=== PATIENT | female | born 1990 | race Caucasian/White ===

== ENCOUNTER 2017-10-28 09:42 | Emergency (ER) | payer OTHER ==
[~2017-10-28] VITALS: Ht 167.6 cm; Wt 68.0 kg
[2017-10-28 09:56] VITALS: BP 113/71
[2017-10-28] MEDS ORDERED: IBUPROFEN 600 MG TABLET PO ONE ×2 (10:17→10:30)
--- NOTE | 2017-10-28 10:30 | NUR ---
THROAT CULTURE AND RAPID STREP A COLLECTED SENT TO LAB
== END 2017-10-28 11:53 | disposition home or self-care (01) ==
LOC: ER 09:50
DX: J02.0 Streptococcal pharyngitis (principal)
CPT/HCPCS: 87070; 87880; 99284; A4606; Z7610; 86403-TC

== ENCOUNTER 2020-10-25 19:46 | Emergency (ER) | payer OTHER ==
[~2020-10-25] VITALS: Ht 167.6 cm; Wt 68.0 kg
[2020-10-25 19:46] VITALS: BP 144/89
--- NOTE | 2020-10-25 20:13 | NUR ---
URINE COLLECTED AND SENT TO LAB
[2020-10-25 20:27] LABS: BILIRUBIN,URINE Negative (NEGATIVE); COLOR,URINE LIGHT YELLOW (YELLOW); LEUKOCYTE ESTERASE ,URINE Moderate (NEGATIVE); NITRITE, URINE Negative (NEGATIVE); PROTEIN,URINE 30 mg/dl (NEGATIVE); UGLUCOSE Negative (NEGATIVE); UROBILINOGEN,URINE 0.2 EU/dL (0.2)
[2020-10-25] MEDS ORDERED: PHENAZOPYRIDINE HCL 200 MG TABLET PO ONE (20:30)
[2020-10-25] MEDS ORDERED: PHENAZOPYRIDINE HCL 200 MG TABLET ONE (20:31)
[2020-10-25 20:32] LABS: BACTERIA,URINE Few /HPF (None Seen); SQUAMOUS EPITHELIAL CELL,UR Few /HPF (None Seen); WBC,URINE 21-50 /HPF (0-3)
[2020-10-25] MEDS ORDERED: NITR100C6 PO (20:40)
[2020-10-25] MEDS ORDERED: PHEN-705 PO (20:40)
--- NOTE | 2020-10-25 20:49 | NUR ---
Patient discharged to home in stable condition. Written and verbal after care instructions given. Patient verbalizes understanding of instruction. Pt ambulatory with a steady gait
[2020-10-25] MEDS ORDERED: NITROFURANTOIN/NITROFURAN MONOHYDRATE 100 MG CAPSULE PO ONE (21:00)
== END 2020-10-25 20:50 | disposition home or self-care (01) ==
LOC: ER 19:50
DX: N39.0 Urinary tract infection, site not specified (principal); Z88.1 Allergy status to other antibiotic agents; Z79.899 Other long term (current) drug therapy
CPT/HCPCS: 81001; 84703-TC; 87086-TC

== ENCOUNTER 2021-07-19 12:43 | Emergency (ER) | payer OTHER ==
[~2021-07-19] VITALS: Ht 170.2 cm; Wt 79.4 kg
[~2021-07-19 12:43] MED LIST: NITR100C6 PO; PHEN-705 PO
--- NOTE | 2021-07-19 12:56 | NUR ---
BIB C/O FEVER, COUGH, DIZZINESS, SOB, CONGESTION X 1 WEEK. PT WANTS TO BE COVID TESTED. AAOX4. BREATHING EVEN AND UNLABORED, NOT IN RESPORATORY DISTRESS. ON MONITOR. VS STABLE. POX 100%.
[2021-07-19] MEDS ORDERED: GUAIFENESIN/D-METHORPHAN HB 5 ML UDC ONE (13:12)
--- NOTE | 2021-07-19 13:25 | NUR ---
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
[2021-07-19] MEDS ORDERED: GUAIFENESIN/D-METHORPHAN HB 5 ML UDC PO ONE (13:30)
[2021-07-19] MEDS ORDERED: ALBU8.5H8 INH (14:44)
[2021-07-19 15:14] VITALS: BP 121/60
--- NOTE | 2021-07-19 15:14 | NUR ---
Patient discharged to home in stable condition. Written and verbal after care instructions given. Patient verbalizes understanding of instruction.
== END 2021-07-19 15:15 | disposition home or self-care (01) ==
LOC: ER 12:44
DX: J98.01 Acute bronchospasm (principal); Z20.822 Contact with and (suspected) exposure to COVID-19; R03.0 Elevated blood-pressure reading, without diagnosis of hypertension; Z88.0 Allergy status to penicillin
CPT/HCPCS: 71045; 87426; 99284; C9803